=== PATIENT | male | born 1960 | race Caucasian/White ===

== ENCOUNTER 2017-11-05 08:27 | Emergency (ER) | payer OTHER, BC ==
[2017-11-05] MEDS ORDERED: ASPI-1471 PO (08:46)
[2017-11-05] MEDS ORDERED: ROPI0.5T25 PO (08:46)
[2017-11-05] MEDS ORDERED: METO25TA23 PO (08:46)
[2017-11-05] MEDS ORDERED: CLOP75TA43 PO (08:46)
[2017-11-05] MEDS ORDERED: NAPR-1043 PO (08:46)
[2017-11-05] MEDS ORDERED: ASPI-1017 PO (08:46)
[2017-11-05] MEDS ORDERED: ATOR40TA24 PO (08:46)
[2017-11-05] MEDS ORDERED: NIT4 SL (08:46)
--- NOTE | 2017-11-05 08:59 | ER Report ---
History and Physical Time Seen By MD: 08:59 Hx. of Stated Complaint: PATEINT REPORTS ABDOMINAL PAIN FOR THE LAST 3 DAYS. HE HAD A SIMILAR EPISODE OF THIS IN 2015 AND HIS DOCTOR TOLD HIM THAT THE NERVE ENDINGS IN HIS STOMACH WERE ANGRY HPI/ROS CHIEF COMPLAINT: Epigastric abdominal pain HISTORY OF PRESENT ILLNESS: Patient is a 56-year-old male here with complaints of epigastric abdominal pain for the last day. Patient endorses nausea without vomiting but denies fevers, chills, chest pain, shortness of breath, dysuria, hematuria. Patient reports having similar symptoms previously which had since resolved. Patient is hemodynamically stable in no acute distress. REVIEW OF SYSTEMS: Constitutional: No fever, no chills. Eyes: No discharge. ENT: No sore throat. Cardiovascular: No chest pain, no palpitations. Respiratory: No cough, no shortness of breath. Gastrointestinal: + mid epigastric abdominal pain, no vomiting, + nausea Genitourinary: No hematuria. Musculoskeletal: No back pain. Skin: No rashes. Neurological: No headache. Allergies: Coded Allergies: fentanyl (Verified Allergy, Severe, ANAPHYLAXIS, 11/05/17) Home Meds Reported Medications Naproxen Sodium (ALEVE) 220 Mg Tablet, 220 MG PO BID, TAB 11/05/17 Aspirin (ASPIR 81) 81 Mg Tablet.dr, 81 MG PO QDAY, TAB 11/05/17 Aspirin/Caffeine (ISABEL BACK & BODY CAPLET) 1 Each Tablet, 1 EACH PO 11/05/17 Nitroglycerin (NITROSTAT) 0.4 Mg Subl, 0.4 MG SL Q5MIN 11/05/17 Metoprolol Succinate (METOPROLOL SUCCINATE) 25 Mg Tab.er.24h, 1 TAB PO QDAY, TAB 11/05/17 Ropinirole Hcl (ROPINIROLE HCL) 0.5 Mg Tablet, 0.5 MG PO TID 11/05/17 Clopidogrel Bisulfate (PLAVIX) 75 Mg Tablet, 1 TAB PO QDAY, TAB 11/05/17 Atorvastatin Calcium (LIPITOR) 40 Mg Tablet, 2 TAB PO QDAY, TAB 11/05/17 Constitutional Vital Sign - Last 24 Hours 11/05/17 11/05/17 11/05/17 11/05/17 08:30 08:34 09:00 09:27 Temp 97.8 Pulse 65 58 Resp 20 B/P (MAP) 130/88 130/88 (102) 115/89 (98) Pulse Ox 96 93 O2 Delivery Room Air 11/05/17 09:30 B/P (MAP) 126/82 (97) Physical Exam General Appearance: The patient is alert, has no immediate need for airway protection and no signs of toxicity. NAD Eyes: Pupils equal and round no pallor or injection. ENT, Mouth: Mucous membranes are moist. Respiratory: There are no retractions, lungs are clear to auscultation. Cardiovascular: Regular rate and rhythm. [ ] Gastrointestinal: Abdomen is soft and + TTP mid epigastrium no masses, bowel sounds normal, no rebound or guarding Neurological: No focal deficits Skin: Warm and dry, no rashes. Musculoskeletal: Neck is supple non tender. Extremities are nontender, nonswollen and have full range of motion. DIFFERENTIAL DIAGNOSIS: After history and physical exam differential diagnosis was considered for abdominal pain including but not limited to appendicitis, cholecystitis, gastritis and urinary tract infection. Medical Decision Making Data Points Result Diagram: 11/05/17 0844 11/05/17 0844 Laboratory Hematology Test 11/05/17 08:13 11/05/17 08:44 Urine Color Straw Urine Clarity Clear Urine pH 6.0 pH (4.8-9.5) Urine Specific [place] 1.004 Urine Protein Negative mg/dL (NEGATIVE) Urine Glucose (UA) Negative mg/dL (NEGATIVE) Urine Ketones Negative mg/dL (NEGATIVE) Urine Blood Negative (NEGATIVE) Urine Nitrite Negative (NEGATIVE) Urine Bilirubin Negative (NEGATIVE) Urine Urobilinogen Negative mg/dL (0.2-1.9) Urine Leukocyte Esterase Negative (NEGATIVE) Urine RBC None /HPF (0-2/HPF) Urine WBC <1 /HPF (0-5/HPF) Urine Squamous Epithelial Cells None /LPF (</=FEW) Urine Bacteria Negative /HPF (NONE-FEW) Urine Mucus None /HPF (NONE-FEW) Red Blood Count 4.74 M/uL (4.00-5.60) Mean Corpuscular Volume 88.4 fL (80.0-96.0) Mean Corpuscular Hemoglobin 30.0 pg (26.0-33.0) Mean Corpuscular Hemoglobin Concent 33.9 g/dL (32.0-36.0) Red Cell Distribution Width 14.5 % (11.5-14.5) Mean Platelet Volume 9.4 fL (7.2-11.1) Neutrophils (%) (Auto) 63.9 % (39.4-72.5) Lymphocytes (%) (Auto) 23.6 % (17.6-49.6) Monocytes (%) (Auto) 8.6 % (4.1-12.4) Eosinophils (%) (Auto) 3.0 % (0.4-6.7) Basophils (%) (Auto) 0.9 % (0.3-1.4) Nucleated RBC Relative Count (auto) 0.1 /100WBC Neutrophils # (Auto) 3.6 K/uL (2.0-7.4) Lymphocytes # (Auto) 1.3 K/uL (1.3-3.6) Monocytes # (Auto) 0.5 K/uL (0.3-1.0) Eosinophils # (Auto) 0.2 K/uL (0.0-0.5) Basophils # (Auto) 0.0 K/uL (0.0-0.1) Nucleated RBC Absolute Count (auto) 0.00 K/uL Sodium Level 142 mmol/L (137-145) Potassium Level 3.9 mmol/L (3.5-5.0) Chloride Level 104 mmol/L (98-107) Carbon Dioxide Level 25 mmol/L (22-30) Blood Urea Nitrogen 17 mg/dl (9-21) Creatinine 0.90 mg/dl (0.66-1.25) Glomerular Filtration Rate Calc > 60.0 Random Glucose 109 mg/dl (75-110) Calcium Level 9.2 mg/dl (8.4-10.2) Total Bilirubin 0.3 mg/dl (0.2-1.3) Aspartate Amino Transf (AST/SGOT) 37 U/L (0-35) Alanine Aminotransferase (ALT/SGPT) 52 U/L (0-56) Alkaline Phosphatase 75 U/L (0-126) Total Protein 7.3 g/dl (6.3-8.2) Albumin 4.3 g/dl (3.5-5.0) Lipase 177 U/L (23-300) Chemistry Test 11/05/17 08:13 11/05/17 08:44 Urine Color Straw Urine Clarity Clear Urine pH 6.0 pH (4.8-9.5) Urine Specific [place] 1.004 Urine Protein Negative mg/dL (NEGATIVE) Urine Glucose (UA) Negative mg/dL (NEGATIVE) Urine Ketones Negative mg/dL (NEGATIVE) Urine Blood Negative (NEGATIVE) Urine Nitrite Negative (NEGATIVE) Urine Bilirubin Negative (NEGATIVE) Urine Urobilinogen Negative mg/dL (0.2-1.9) Urine Leukocyte Esterase Negative (NEGATIVE) Urine RBC None /HPF (0-2/HPF) Urine WBC <1 /HPF (0-5/HPF) Urine Squamous Epithelial Cells None /LPF (</=FEW) Urine Bacteria Negative /HPF (NONE-FEW) Urine Mucus None /HPF (NONE-FEW) White Blood Count 5.6 k/uL (4.5-11.0) Red Blood Count 4.74 M/uL (4.00-5.60) Hemoglobin 14.2 g/dL (14.0-18.0) Hematocrit 41.9 % (42.0-52.0) Mean Corpuscular Volume 88.4 fL (80.0-96.0) Mean Corpuscular Hemoglobin 30.0 pg (26.0-33.0) Mean Corpuscular Hemoglobin Concent 33.9 g/dL (32.0-36.0) Red Cell Distribution Width 14.5 % (11.5-14.5) Platelet Count 279 K/uL (150-450) Mean Platelet Volume 9.4 fL (7.2-11.1) Neutrophils (%) (Auto) 63.9 % (39.4-72.5) Lymphocytes (%) (Auto) 23.6 % (17.6-49.6) Monocytes (%) (Auto) 8.6 % (4.1-12.4) Eosinophils (%) (Auto) 3.0 % (0.4-6.7) Basophils (%) (Auto) 0.9 % (0.3-1.4) Nucleated RBC Relative Count (auto) 0.1 /100WBC Neutrophils # (Auto) 3.6 K/uL (2.0-7.4) Lymphocytes # (Auto) 1.3 K/uL (1.3-3.6) Monocytes # (Auto) 0.5 K/uL (0.3-1.0) Eosinophils # (Auto) 0.2 K/uL (0.0-0.5) Basophils # (Auto) 0.0 K/uL (0.0-0.1) Nucleated RBC Absolute Count (auto) 0.00 K/uL Glomerular Filtration Rate Calc > 60.0 Calcium Level 9.2 mg/dl (8.4-10.2) Total Bilirubin 0.3 mg/dl (0.2-1.3) Aspartate Amino Transf (AST/SGOT) 37 U/L (0-35) Alanine Aminotransferase (ALT/SGPT) 52 U/L (0-56) Alkaline Phosphatase 75 U/L (0-126) Total Protein 7.3 g/dl (6.3-8.2) Albumin 4.3 g/dl (3.5-5.0) Lipase 177 U/L (23-300) Urinalysis Test 11/05/17 08:13 Urine Color Straw Urine Clarity Clear Urine pH 6.0 pH (4.8-9.5) Urine Specific [place] 1.004 Urine Protein Negative mg/dL (NEGATIVE) Urine Glucose (UA) Negative mg/dL (NEGATIVE) Urine Ketones Negative mg/dL (NEGATIVE) Urine Blood Negative (NEGATIVE) Urine Nitrite Negative (NEGATIVE) Urine Bilirubin Negative (NEGATIVE) Urine Urobilinogen Negative mg/dL (0.2-1.9) Urine Leukocyte Esterase Negative (NEGATIVE) Urine RBC None /HPF (0-2/HPF) Urine WBC <1 /HPF (0-5/HPF) Urine Squamous Epithelial Cells None /LPF (</=FEW) Urine Bacteria Negative /HPF (NONE-FEW) Urine Mucus None /HPF (NONE-FEW) EKG/Imaging Imaging Location: [facility] Patient: Shan Ku : 1960 Visit/Account:[id number] Date of Sevice: 11/05/2017 ACUTE ABDOMEN SERIES 3 VIEW HISTORY: ABDOMINAL PAIN COMPARISON: CT examination from August 2008. FINDINGS: Cardiac silhouette is within normal limits. Coronary stent is noted. Lungs are clear. No free air. Nonobstructive bowel pattern without evidence of dilated loop of bowel, pneumatosis or free air. Surgical clips overlie the lower abdomen. Sutures seen over the midline pelvis. Clips from a cholecystectomy. IMPRESSION: 1. No acute cardiac pulmonary process 2. Nonobstructive bowel pattern without radiographic evidence of pathology ED Course/Re-evaluation ED Course Patient is a 56-year-old male here with complaints of midepigastric abdominal pain, nausea without vomiting. Labs are unremarkable, x-ray of the abdomen showed no acute obstruction or free air. Patient was given Toradol and a GI cocktail. Discussed the findings with the patient voiced understanding. Patient was was advised to follow-up with his PCP in the next 3 days. Patient was stable at time of discharge. Patient was given scripts for omeprazole and naproxen. Patient had significant relief of symptoms after treatment with the GI cocktail and Toradol. Decision to Disposition Date: Nov 05, 2017 Decision to Disposition Time: 10:06 Depart Departure Latest Vital Signs Vital Signs Date Time Temp Pulse Resp B/P (MAP) Pulse Ox O2 Delivery O2 Flow Rate FiO2 11/05/17 09:30 126/82 (97) 11/05/17 09:27 58 93 11/05/17 08:30 97.8 20 Room Air Impression: Primary Impression: Epigastric abdominal pain Condition: Improved Disposition: HOME OR SELF-CARE New Scripts Tramadol Hcl (TRAMADOL HCL) 50 Mg Tablet 50 MG PO Q4-6H, #10 TAB Prov: COURTNEY WEISS DO 11/05/17 Omeprazole (OMEPRAZOLE) 20 Mg Capsule. 1 CAP PO QDAY for 30 Days, #30 CAP Prov: COURTNEY WEISS DO 11/05/17 Patient Instructions: Abdominal Pain (ED), Omeprazole (By mouth), Tramadol (By mouth) Additional Instructions: Please drink plenty of water. Please follow-up with her family doctor in the next week. Please take one tablet of omeprazole daily 30 minutes before breakfast. You may take 1 tablet of tramadol every 6-8 hours as needed for breakthrough abdominal pain. Please return promptly if you develop worsening pain, fevers, oral intolerance. COURTNEY WEISS DO Nov 05, 2017 08:59
[2017-11-05 09:00] LABS: PLATELET COUNT, AUTOMATED 279 K/uL (150-450)
[2017-11-05] MEDS ORDERED: ATRO/SCOPOL/HYOSCY/PB 5 ML ELX PO ONE (09:15)
[2017-11-05] MEDS ORDERED: LIDOCAINE 2% VISC SLN 15ML UDC PO ONE (09:15)
[2017-11-05] MEDS ORDERED: KETOROLAC 30 MG/ML VIAL IM ONE (09:15)
[2017-11-05] MEDS ORDERED: MAG HYD/AL HYD/SIMETH 30ML UDC PO ONE (09:15)
--- NOTE | 2017-11-05 09:30 | RADIOLOGY IMAGING REPORT ---
FACILITY: [facility] [place]IENT NAME: Shan Ku : 1960 MR: [id number] V: [id number] EXAM DATE: ORDERING PHYSICIAN: COURTNEY WEISS TECHNOLOGIST: Location: [facility] [place] Patient: Shan Ku : 1960 Visit/Account:[id number] Date of Sevice: 11/05/2017 ACUTE ABDOMEN SERIES 3 VIEW HISTORY: ABDOMINAL PAIN COMPARISON: CT examination from August 2008. FINDINGS: Cardiac silhouette is within normal limits. Coronary stent is noted. Lungs are clear. No free air. No nobstructive bowel pattern without evidence of dilated loop of bowel, pneumatosis or free air. Surgic al clips overlie the lower abdomen. Sutures seen over the midline pelvis. Clips from a cholecystectom y. IMPRESSION: 1. No acute cardiac pulmonary process 2. Nonobstructive bowel pattern without radiographic evidence of pathology Report Dictated By: Agus Bell MD at 11/05/2017 9:24 AM Report E-Signed By: Agus Bell MD at 11/05/2017 9:26 AM WSN:[id number]
[2017-11-05 10:00] VITALS: BP 108/83
[2017-11-05] MEDS ORDERED: OMEP-125 PO (10:10)
[2017-11-05] MEDS ORDERED: TRAM-420 PO (10:10)
== END 2017-11-05 10:22 | disposition home or self-care (01) ==
LOC: ER 09:01
DX: R10.13 Epigastric pain (principal)
CPT/HCPCS: 74022; 81001; 83690; 85025; 96372; 99283; J1885; 82040; 82247; 82310; 82374; 82435; 82565; 82947; 84075; 84132; 84155; 84295; 84450; 84460; 84520